=== PATIENT | female | born 1980 | race African-American/Black ===

== ENCOUNTER 2024-04-26 09:10 | Emergency (ER) | payer MEDICAID ==
[~2024-04-26] VITALS: Ht 177.8 cm; Wt 122.4 kg
[2024-04-26 09:15] VITALS: O2SAT 100
[2024-04-26 09:54] LABS: HEMATOCRIT. 32.4 % (36.0-48.0); MEAN CORPUSCULAR HEMOGLOBIN 21.8 pg (28.0-32.0); MEAN CORPUSCULAR HGB CONC 30.9 g/dL (31.0-37.0); MEAN CORPUSCULAR VOLUME 70.5 fL (81.0-99.0); MEAN PLATELET VOLUME 7.1 fl (7.4-10.4); PLATELET 426 x1000/uL (130-400); RED CELL DISTRIBUTION WIDTH 19.6 % (11.6-14.6); WHITE BLOOD COUNT 8.1 x1000/uL (4.5-11.0)
[2024-04-26 09:57] LABS: CHLORIDE 107 mEq/L (98-107); POTASSIUM 3.7 mEq/L (3.5-5.1); SODIUM 138 mEq/L (136-145)
[2024-04-26 09:58] LABS: CALCIUM 9.7 mg/dL (8.7-10.4); CARBON DIOXIDE 24 mEq/L (21-32)
[2024-04-26] MEDS: ACETAMINOPHEN 325MG TABLET PO ONE (10:00)
[2024-04-26] MEDS: ONDANSETRON 4MG ODT PO ONE (10:01)
[2024-04-26 10:02] LABS: DIFFERENTIAL COMMENT 1
[2024-04-26 10:03] LABS: CREATININE 0.9 mg/dL (0.6-1.0); GLUCOSE 98 mg/dL (70-105); UREA NITROGEN BLOOD 12 mg/dL (9-23)
[2024-04-26 10:23] LABS: B-HCG QUANTITATIVE 5855 mIU/mL (<3)
[2024-04-26 13:24] VITALS: BP 131/87; PULSE 88; RESP 18; TEMP 36.72516; O2SAT 100
[2024-04-26 15:45] LABS: ANISOCYTOSIS 1+; HYPOCHROMASIA 2+; MICROCYTOSIS 2+; PLATELET ESTIMATE INCREASED
== END 2024-04-26 13:46 | disposition home or self-care (01) ==
LOC: ER 09:25
DX: O03.9 Complete or unspecified spontaneous abortion without complication (principal); O26.891 Other specified pregnancy related conditions, first trimester; Z88.0 Allergy status to penicillin; Z86.59 Personal history of other mental and behavioral disorders; Z3A.10 10 weeks gestation of pregnancy
CPT/HCPCS: 99284; 76801; 80048; 84702; 85025; 86850; 86900; 86901; 36415; 76817; Q0162

== ENCOUNTER 2024-04-28 15:10 | Emergency (ER) | payer MEDICAID ==
[~2024-04-28] VITALS: Ht 177.8 cm; Wt 120.0 kg
[2024-04-28 15:20] VITALS: O2SAT 100
[2024-04-28 18:42] LABS: BASOPHILS % 0.8 % (0.0-2.0); EOSINOPHILS % 1.8 % (0.0-5.0); HEMATOCRIT. 32.3 % (36.0-48.0); HEMOGLOBIN. 9.8 g/dL (12.0-16.0); LYMPHOCYTES % 45.9 % (20.0-50.0); MEAN CORPUSCULAR HEMOGLOBIN 21.3 pg (28.0-32.0); MEAN CORPUSCULAR HGB CONC 30.3 g/dL (31.0-37.0); MEAN CORPUSCULAR VOLUME 70.4 fL (81.0-99.0); MEAN PLATELET VOLUME 6.7 fl (7.4-10.4); MONOCYTES % 7.1 % (2.0-8.0); NEUTROPHILS % 44.4 % (40.0-76.0); PLATELET 444 x1000/uL (130-400); RED BLOOD CELL COUNT 4.59 mill/uL (4.2-5.4); RED CELL DISTRIBUTION WIDTH 19.9 % (11.6-14.6); WHITE BLOOD COUNT 8.2 x1000/uL (4.5-11.0)
[2024-04-28 18:46] LABS: DIFFERENTIAL COMMENT 1
[2024-04-28 18:49] LABS: CHLORIDE 107 mEq/L (98-107); POTASSIUM 3.8 mEq/L (3.5-5.1); SODIUM 137 mEq/L (136-145)
[2024-04-28 18:50] LABS: CARBON DIOXIDE 26 mEq/L (21-32)
[2024-04-28 18:55] LABS: GLUCOSE 85 mg/dL (70-105)
[2024-04-28 18:56] LABS: UREA NITROGEN BLOOD 16 mg/dL (9-23)
[2024-04-28 18:57] LABS: ALANINE AMINOTRANSFERASE 7 IU/L (10-49); ALBUMIN 4.6 g/dL (3.2-4.8); ASPARTATE AMINOTRANSFERASE 15 IU/L (<34)
[2024-04-28 18:58] LABS: BILIRUBIN TOTAL 0.3 mg/dL (0.1-1.0); PROTEIN TOTAL 7.4 g/dL (6.0-8.3)
[2024-04-28 19:12] LABS: B-HCG QUANTITATIVE 1808 mIU/mL (<3)
[2024-04-28] MEDS: HYDROCODONE/ACETAMINOPHEN 5/325MG TABLET PO ONE (19:45)
[2024-04-28 20:32] LABS: CLARITY URINE CLOUDY (CLEAR); COLOR URINE YELLOW (YELLOW); GLUCOSE URINE NEGATIVE (NEGATIVE); KETONES URINE NEGATIVE (NEGATIVE); LEUKOCYTE ESTERASE URINE 1+ (NEGATIVE); NITRITE URINE NEGATIVE (NEGATIVE); OCCULT BLOOD URINE 3+ (NEGATIVE); PH URINE 5.5 (4.5-8.0); PROTEIN URINE 1+ (NEGATIVE); SPECIFIC GRAVITY URINE 1.022 (1.005-1.030); UROBILINOGEN URINE 0.2 E.U./dL (0.2-1.0)
[2024-04-28 20:52] LABS: RBC URINE TNTC /hpf (0-2); WBC URINE 0-2 /hpf (0-2)
[2024-04-28 20:53] LABS: BACTERIA URINE TRACE; SQUAMOUS EPITHELIAL CELL URINE 1+ /lpf (RARE/1+)
[2024-04-28] MEDS: METHOTREXATE SODIUM/PF 50 MG/2 ML VIAL IM ONE (21:30)
[2024-04-28] MEDS ORDERED: T3 PO (21:45)
[2024-04-28] MEDS ORDERED: ONDA-241 MT (21:48)
[2024-04-28] MEDS ORDERED: FERR324T4 MT (21:48)
[2024-04-28 21:51] VITALS: BP 158/85; PULSE 91; RESP 19; TEMP 36.89184; O2SAT 100
== END 2024-04-28 22:16 | disposition home or self-care (01) ==
LOC: ER 15:10
DX: O03.4 Incomplete spontaneous abortion without complication (principal); O26.891 Other specified pregnancy related conditions, first trimester; Z3A.13 13 weeks gestation of pregnancy
CPT/HCPCS: 80053; 81003; 84702; 85025; 36415; 76801; 76817; 96372; 99285; J9260; Z7610